=== PATIENT | male | born 1960 | race Asian ===

== ENCOUNTER 2020-09-15 06:09 | Day surgery (SDC) | payer OTHER, SELFPAY ==
[~2020-09-15] VITALS: Ht 160 cm; Wt 63.5 kg
[2020-09-15] MEDS ORDERED: MIDAZOLAM 2 MG/2 ML VIAL ONE (08:09)
[2020-09-15] MEDS ORDERED: fentaNYL citrate 0.05 MG/ML VIAL ONE (08:09)
[2020-09-15] MEDS ORDERED: LIDOCAINE 2% 100 MG/5 ML UJET TP ONE ×3 (08:09→10:10)
[2020-09-15] MEDS ORDERED: KETOROLAC 60 MG/2 ML VIAL IM ONE (08:26)
[2020-09-15] MEDS ORDERED: KETOROLAC 30 MG/ML VIAL IVP SCH (09:55)
== END 2020-09-15 09:18 | disposition home or self-care (01) ==
LOC: MDS 06:09 → MFCC 06:10 → MDS 09:18
PROVIDERS: ATTEND Internal Medicine Gastroenterology
DX: Z12.11 Encounter for screening for malignant neoplasm of colon (principal); D12.2 Benign neoplasm of ascending colon
CPT/HCPCS: 45385; J1885; U0003; J2250; J3010